=== PATIENT | male | born 1955 | race Caucasian/White ===

== ENCOUNTER 2019-05-29 16:52 | Emergency (ER) | payer BC ==
--- NOTE | 2019-05-29 18:00 | RAD ---
RIGHT KNEE: 05/29/19 Four views. HISTORY: Injury. Moderate degenerative changes are present. Chondrocalcinosis and degenerative spurring noted at the knee joint. Prior internal fixation procedure with metallic screw transfixing the distal femur and me tallic screw transfixing the proximal fibula. No acute fracture. No joint effusion. IMPRESSION: No acute finding. Postoperative and degenerative changes are noted. POS: OFF
== END 2019-05-29 18:05 | disposition home or self-care (01) ==
LOC: ERS 16:52
DX: M25.561 Pain in right knee (principal); V89.2XXA Person injured in unspecified motor-vehicle accident, traffic, initial encounter